=== PATIENT | female | born 1960 | race Caucasian/White ===

== ENCOUNTER 2025-04-18 15:15 | Emergency (ER) | payer BC ==
[2025-04-18] MEDS: Diphtheria,Pertussis(Acell),Tetanus Vaccine 0.5 ML Syringe IM ONE (17:09)
== END 2025-04-18 17:15 | disposition home or self-care (01) ==
LOC: JD.ED 15:15
DX: S01.511A Laceration without foreign body of lip, initial encounter (principal); S63.501A Unspecified sprain of right wrist, initial encounter; S80.02XA Contusion of left knee, initial encounter; S80.01XA Contusion of right knee, initial encounter; S00.12XA Contusion of left eyelid and periocular area, initial encounter; S00.11XA Contusion of right eyelid and periocular area, initial encounter; S09.93XA Unspecified injury of face, initial encounter; Z23 Encounter for immunization; Z79.899 Other long term (current) drug therapy; Z88.0 Allergy status to penicillin; Z88.5 Allergy status to narcotic agent; Z88.1 Allergy status to other antibiotic agents; W01.198A Fall on same level from slipping, tripping and stumbling with subsequent striking against other object, initial encounter
CPT/HCPCS: 12011; 70450; 73110; 73562; 90471; 90715; 99284; A9270; J2003; 99283